=== PATIENT | male | born 1995 | race Caucasian/White ===

== ENCOUNTER 2019-11-03 02:48 | Emergency (ER) | payer BC ==
[~2019-11-03] VITALS: Ht 175.3 cm; Wt 77.1 kg
[2019-11-03 02:52] VITALS: BP 148/68
[2019-11-03] MEDS ORDERED: AMOXICILLIN TRIHYDRATE 250 MG CAPSULE PO ONE (03:00)
[2019-11-03] MEDS ORDERED: AMOXICILLIN TRIHYDRATE 250 MG CAPSULE ONE (03:01)
== END 2019-11-03 03:07 | disposition home or self-care (01) ==
LOC: ER 02:50
DX: H66.91 Otitis media, unspecified, right ear (principal); F10.10 Alcohol abuse, uncomplicated; Y90.9 Presence of alcohol in blood, level not specified